=== PATIENT | male | born 1930 | race Caucasian/White ===

== ENCOUNTER 2016-10-15 00:41 | Inpatient (IN) | payer MEDICARE, OTHER ==
[~2016-10-15] VITALS: Ht 167.6 cm; Wt 54.0 kg
[2016-10-15] VITALS (14 sets, daily range): BP systolic 108–167; BP diastolic 54–74; PULSE 59–83; RESP 16–20; TEMP 97.7; Ht 167.6 cm; Wt 54.0 kg
[2016-10-15] MEDS ORDERED: ALBUTEROL 0.083% (NEB) 2.5 MG/3 ML AMP INH STA (01:05)
[2016-10-15] MEDS ORDERED: IPRATROPIUM (NEB) 0.5 MG/2.5 ML AMP INH STA (01:05)
--- NOTE | 2016-10-15 01:47 | RADRPT ---
PROCEDURE: XR Chest. CLINICAL INDICATION: Shortness of breath TECHNIQUE: Single frontal view of the chest was obtained COMPARISON: None FINDINGS: The heart is not enlarged. The patient is likely status post CABG. A single superior sternal wire seen. Appearance of narrowing of the transverse tracheal lumen in the thoracic inlet region of uncer tain etiology. Calcification in the aortic arch. There is minimal prominence of the lung interstitium likely minimal chronic changes. There is no pleural effusion or pneumothorax. ECG leads projected over the chest. IMPRESSION: Appearance of narrowing of the transverse tracheal lumen in the thoracic inlet region of uncertain e tiology. Please see above. RPTAT: HJES .Pratik Burns MD, MD Date Time Electronically viewed and signed by .Pratik Burns MD, MD on 10/15/2016 01:47 .S/
[2016-10-15 02:19] LABS: ADD SCAN DIFF NO
[2016-10-15 02:21] LABS: BASOPHILS % 0.3 % (0.0-2.0); EOSINOPHILS # 0.3 10^3/ul (0.0-0.5); EOSINOPHILS % 4.1 % (0.0-7.0); HEMATOCRIT 30.9 % (42.0-52.0); HEMOGLOBIN 10.2 g/dl (14.0-18.0); LYMPHOCYTES # 2.3 10^3/ul (0.8-2.9); MEAN CORPUSCULAR HEMOGLOBIN 32.1 pg (29.0-33.0); MEAN CORPUSCULAR VOLUME 97.2 fl (82.0-101.0); MEAN PLATELET VOLUME 11.6 fl (7.4-10.4); MONOCYTE # 0.7 10^3/ul (0.3-0.9); MONOCYTES % 10.3 % (0.0-11.0); NEUTROPHIL # 3.1 10^3/ul (1.6-7.5); NEUTROPHILS % 48.8 % (39.0-77.0); PLATELET COUNT 167 10^3/UL (140-415); RED BLOOD COUNT 3.18 10^6/ul (4.70-6.10); RED CELL DISTRIBUTION WIDTH 12.7 % (11.5-14.5); WHITE BLOOD COUNT 6.3 10^3/ul (4.8-10.8)
[2016-10-15 02:37] LABS: ALBUMIN 3.7 g/dl (3.3-4.9); CHLORIDE 103 mmol/L (97-110)
[2016-10-15 02:38] LABS: SODIUM 137 mmol/L (135-144)
[2016-10-15 02:40] LABS: ALANINE AMINOTRANSFERASE 23 IU/L (13-69); ALBUMIN/GLOBULIN RATIO 1.27; ALKALINE PHOSPHATASE 49 IU/L (42-121); ANION GAP 15 (8-16); ASPARTATE AMINO TRANSFERASE 19 IU/L (15-46); BILIRUBIN,INDIRECT 0.3 mg/dl (0-1.1); BILIRUBIN,TOTAL 0.3 mg/dl (0.2-1.3); BLOOD UREA NITROGEN 43 mg/dl (7-20); CARBON DIOXIDE 24 mmol/L (21-31); CREATININE 1.65 mg/dl (0.61-1.24); TOTAL PROTEIN 6.6 g/dl (6.1-8.1)
[2016-10-15 02:41] LABS: CALCIUM 9.5 mg/dl (8.4-10.2); GLUCOSE 169 mg/dl (70-220)
[2016-10-15 02:49] LABS: B-TYPE NATRIURETIC PEPTIDE 1820 PG/ML (0-450)
[2016-10-15 02:51] LABS: INR 1.11; PROTIME 14.3 Sec (12.2-14.2); PT RATIO 1.1
[2016-10-15 03:01] LABS: TROPONIN-I < 0.012 ng/ml (0.00-0.12)
--- NOTE | 2016-10-15 05:04 | ERA ---
ER Documentation Chief Complaint Date/Time DATE: 10/15/16 TIME: 05:03 Chief Complaint intermittent sob and cp x 1 week HPI This is a 86-year-old male complains of intermittent shortness of breath and chest pain for the past week. No fevers or chills. No nausea no vomiting. Patient says is worse when he lays back. He is also notes mild leg swelling. No other current complaints. ROS All systems reviewed and are negative except as per history of present illness. Allergies Allergies: Coded Allergies: No Known Allergy (Unverified , 10/15/16) PMhx/Soc Hx Alcohol Use: No Hx Substance Use: No Hx Tobacco Use: No Smoking Status: Never smoker Physical Exam Vitals Vital Signs Date Time Temp Pulse Resp B/P Pulse Ox O2 Delivery O2 Flow Rate FiO2 10/15/16 03:05 97.7 78 16 138/66 99 Room Air 10/15/16 01:30 77 18 99 21 10/15/16 01:05 97.7 64 17 147/61 100 Physical Exam Const: [] Head: Atraumatic Eyes: Normal Conjunctiva ENT: Normal External Ears, Nose and Mouth. Neck: Full range of motion..~ No meningismus. Resp: Clear to auscultation bilaterally Cardio: Regular rate and rhythm, no murmurs Abd: Soft, non tender, non distended. Normal bowel sounds Skin: No petechiae or rashes Back: No midline or flank tenderness Ext: No cyanosis, or edema Neur: Awake and alert Psych: Normal Mood and Affect Result Diagram: 10/15/16 0145 10/15/16 0145 Results 24 hrs Laboratory Tests Test 10/15/16 01:45 White Blood Count 6.310^3/ul Red Blood Count 3.1810^6/ul Hemoglobin 10.2g/dl Hematocrit 30.9% Mean Corpuscular Volume 97.2fl Mean Corpuscular Hemoglobin 32.1pg Mean Corpuscular Hemoglobin Concent 33.0g/dl Red Cell Distribution Width 12.7% Platelet Count 82384^3/UL Mean Platelet Volume 11.6fl Neutrophils % 48.8% Lymphocytes % 36.0% Monocytes % 10.3% Eosinophils % 4.1% Basophils % 0.3% Nucleated Red Blood Cells % 0.0/100WBC Neutrophils # 3.110^3/ul Lymphocytes # 2.310^3/ul Monocytes # 0.710^3/ul Eosinophils # 0.310^3/ul Basophils # 0.010^3/ul Nucleated Red Blood Cells # 0.010^3/ul Prothrombin Time 14.3Sec Prothrombin Time Ratio 1.1 INR International Normalized Ratio 1.11 Activated Partial Thromboplast Time 32.0Sec Sodium Level 137mmol/L Potassium Level 5.0mmol/L Chloride Level 103mmol/L Carbon Dioxide Level 24mmol/L Anion Gap 15 Blood Urea Nitrogen 43mg/dl Creatinine 1.65mg/dl Glucose Level 169mg/dl Calcium Level 9.5mg/dl Total Bilirubin 0.3mg/dl Direct Bilirubin 0.00mg/dl Indirect Bilirubin 0.3mg/dl Aspartate Amino Transf (AST/SGOT) 19IU/L Alanine Aminotransferase (ALT/SGPT) 23IU/L Alkaline Phosphatase 49IU/L Troponin I < 0.012ng/ml B-Type Natriuretic Peptide 1820PG/ML Total Protein 6.6g/dl Albumin 3.7g/dl Globulin 2.90g/dl Albumin/Globulin Ratio 1.27 Current Medications Medications (Trade) Dose Ordered Sig/Aj Route PRN Reason Start Time Stop Time Status Last Admin Dose Admin Albuterol (Proventil 0.083% (Neb)) 5 mg ONCE STAT INH 10/15/16 01:05 10/15/16 01:30 DC 10/15/16 01:34 Ipratropium [place] (Atrovent 0.02% (Neb)) 0.5 mg ONCE STAT INH 10/15/16 01:05 10/15/16 01:30 DC 10/15/16 01:34 Procedures/MDM EKG: Rate/Rhythm: Normal Sinus Rhythm QRS, ST, T-waves: No changes consistent w/ acute ischemia Impression: No evidence of ischemia or arrhythmia Chest X-ray 1V Interpreted by me: Soft Tissue: No acute abnormalities Bones: No acute abnormalities Mediastinum/Cardiac Silhouette/Lungs: No acute abnormalities Patient's heart failure symptoms is concerning for acute decompensation and will require inpatient workup and monitoring. Further w/u for ischemia, arrhythmia, PE or dissection will be deferred to the inpatient team. Accepting Care Team: Current data and ongoing care discussed. Time: 5 AM Primary Provider: Hospitalist Consulting: [XOXOXO] Outstanding Data: none Departure Diagnosis: Primary Impression: CHF (congestive heart failure) Qualified Code: I50.9 - Congestive heart failure, unspecified congestive heart failure chronicity, unspecified congestive heart failure type Condition: Serious MARY RAMIREZ Oct 15, 2016 05:04
[2016-10-15] MEDS ORDERED: NPH,100I5 SQ (05:29)
[2016-10-15] MEDS ORDERED: METO5TAB58 PO ×2 (06:49→06:59)
[2016-10-15] MEDS ORDERED: ASPI325T4 PO (06:49)
[2016-10-15] MEDS ORDERED: ALLO100T PO (06:59)
[2016-10-15] MEDS ORDERED: OLME40TA14 PO (06:59)
[2016-10-15] MEDS ORDERED: ATOR40TA68 PO (06:59)
[2016-10-15] MEDS ORDERED: ISOS20TA19 PO (06:59)
[2016-10-15] MEDS ORDERED: TAMS0.4C2 PO (06:59)
[2016-10-15] MEDS ORDERED: DEXL60CA2 PO (06:59)
[2016-10-15] MEDS ORDERED: ONDANSETRON 4 MG INJ IV PRN (08:30)
[2016-10-15] MEDS ORDERED: morphine 2 MG INJ IV PRN (08:30)
[2016-10-15] MEDS ORDERED: NITROGLYCERIN (SL) 0.4 MG TAB SL PRN (08:30)
[2016-10-15] MEDS ORDERED: ACETAMINOPHEN 325 MG TAB PO PRN (08:30)
[2016-10-15] MEDS ORDERED: ALBUTEROL/IPRATROPIUM (NEB) 3 ML AMP HHN PRN (08:30)
[2016-10-15] MEDS ORDERED: NACL 0.9% 3 ML SYG IV SCH (08:30)
--- NOTE | 2016-10-15 08:58 | HP ---
DATE OF ADMISSION: 10/15/2016 TIME SEEN: 5:30 a.m. CHIEF COMPLAINT: Shortness of breath. HISTORY OF PRESENT ILLNESS: The patient is an 86-year-old male with a history of diabetes, hypertens ion and cardiac surgery, likely to coronary artery bypass graft, who presented to the emergency depa rtment with a chief complaint of shortness of breath. The patient's symptoms started about a week a go and have been progressively getting worse. He has been waking up from his sleep gasping for air. He also reported intermittent chest pain for the past 1 week. Denied nausea, vomiting, fever, chi lls, abdominal pain, or urinary symptoms. When he presented to the ER, blood pressure was 147/61, heart rate 64, respiration rate 17, temperat ure 97.7, oxygen saturation 100% on room air. Laboratory value shows a BUN of 43, creatinine 1.65. BNP 1800 and a hemoglobin of 10.2. Otherwise, CBC and CMP are within acceptable range. His first troponin is negative. Chest x-ray shows appearance of narrowing of the transverse tracheal lumen in the thoracic inlet reg ion, of uncertain etiology. The initial EKG showed normal sinus rhythm with no ST-T wave abnormalit ies. IMPRESSION: 1. Shortness of breath, most likely secondary to congestive heart failure exacerbation. 2. Chest pain. 3. History of hypertension. 4. History of diabetes. 5. Presumed acute kidney injury. 6. Normocytic anemia. 7. History of cardiac surgery, possibly coronary artery bypass graft. PLAN: We will admit to telemetry unit. He will be placed on aspirin, Lasix. His heart rate sometim es is down in the 60s, but ____ we will consider adding a beta rosario. He will receive as needed n itroglycerin and morphine. He will be placed on oxygen. We will obtain a 2D echo as well as a card iology consult. Will send iron profile to see if he has iron deficiency anemia. Further workup and management per clinical course. Dictated By: MARY YANG/VELVET Conf#: [id number] DID#: [id number]
[2016-10-15] MEDS ORDERED: LOSARTAN 50 MG TAB PO SCH (09:00)
[2016-10-15] MEDS ORDERED: ASPIRIN 325 MG TAB PO SCH (09:00)
[2016-10-15] MEDS ORDERED: NON-FORMULARY/PATIENT OWN MED (Olmesartan Medoxomil (Benicar) 40 MG) PO SCH (09:00)
[2016-10-15] MEDS ORDERED: ISOSORBIDE DINITRATE 20 MG TAB PO SCH (09:00)
[2016-10-15 09:17] LABS: TROPONIN-I 0.013 ng/ml (0.00-0.12)
[2016-10-15 09:19] LABS: CK-MB 1.44 ng/ml (0.0-2.4)
[2016-10-15] MEDS: HEPARIN 5,000 UNIT/0.5 ML VIAL SC SCH ×2 (10:07→20:26)
[2016-10-15] MEDS: TAMSULOSIN (SR) 0.4 MG CAP PO SCH (10:24)
[2016-10-15] MEDS: ISOSORBIDE MONONITRATE(SR)30 MG TAB PO SCH (10:26)
[2016-10-15] MEDS: METOPROLOL 25 MG TAB PO SCH ×2 (10:29→20:25)
[2016-10-15] MEDS: ALLOPURINOL 100 MG TAB PO SCH (10:30)
[2016-10-15] MEDS: ASPIRIN 81 MG TAB PO SCH (10:30)
[2016-10-15] MEDS: PANTOPRAZOLE (EC) 40 MG TAB PO SCH (11:00)
[2016-10-15] MEDS ORDERED: INSULIN ASPART [NOVOLOG] 3 ML PEN SC SCH (11:50)
[2016-10-15] MEDS ORDERED: DEXTROSE 50% 50 ML SYRINGE IV PRN ×2 (12:00)
[2016-10-15] MEDS ORDERED: GLUCOSE GEL 15 GRAM TUBE BUCCAL PRN (12:00)
[2016-10-15] MEDS ORDERED: GLUCAGON 1 MG INJ IM PRN (12:00)
[2016-10-15] MEDS ORDERED: GLUCOSE GEL 15 GRAM TUBE PO PRN ×2 (12:00)
[2016-10-15] MEDS: INSULIN ASPART [NOVOLOG] 3 ML PEN SC SCH ×3 (12:18→20:27)
[2016-10-15] MEDS ORDERED: hydrALAzine 20 MG INJ IV PRN (13:30)
[2016-10-15 15:33] LABS: CREATINE KINASE 40 IU/L (23-200)
--- NOTE | 2016-10-15 15:56 | RADRPT ---
Echocardiogram Report Patient Name: MARIANA ANDERSON Gender: Male Date: 1930 Study Date: 15-Oct-2016 Rn Case Manager: [facility] Location: 522 Ref. Physician: MARY GIBBS Quality: Adequate Procedures: Transthoracic echocardiogram with complete 2D, M-Mode, and doppler examination. Indications: WEAKNESS. 2D/M Mode Doppler Measurement Value Normal Ranges Measurement Value Normal Ranges LVIDd 2D 4.6 3.5 - 5.6 cm VANESSA Vmax 1.1 cm2 LVIDs 2D 3.3 2.1 - 4.1 cm VANSESA VTI 1.1 cm2 LVPWd 2D 1.2 0.6 - 1.1 cm AV Mean Jamison 2.1 m/sec IVSd 2D 1.4 0.6 - 1.1 cm AV Mean PG 19.9 mmHg AoR Diam 2D 2.9 2.0 - 3.7 cm AV Peak [place]ison 2.9 m/sec EDV 2D 98.1 cm3 AV Peak PG 33.0 mmHg ESV 2D 36.2 cm3 AV VTI 78.3 cm LVOT Diam 2.1 cm LVOT Mean [place] 0.5 m/sec LVOT Mean PG 1.3 mmHg LVOT Peak [place] 0.9 m/sec LVOT Peak PG 3.4 mmHg LVOT VTI 26.2 cm MV E Peak [place] 1.3 m/sec MV A Peak [place] 1.3 m/sec MV E/A 1.0 MV Decel Time 165 msec MV Decel [place] 8 MV E/A 1.0 TR Peak [place] 2.5 m/sec TR Peak PG 24.9 mmHg Findings Left Ventricle: Normal left ventricular cavity size. Mild concentric left ventricular hypertrophy. Ejection fraction is visually estimated at 55 %. Abnormal Diastolic Function. These segments of the LV are hypokinetic apical septum. Right Ventricle: Mild right ventricular systolic dysfunction. Mild enlargement of right ventricle. Left Atrium: Upper limit of normal left atrial size. Right Atrium: There is mild enlargement of right atrium. RA Pressure=3. Mitral Valve: Mitral valve leaflets appear mildly thickened. Mild mitral annular calcification. Mild mitral valve regurgitation. Aortic Valve: Moderate aortic stenosis. Aortic valve Max velocity 2.87 m/sec. Max PG 33.00 mmHg. Mean PG 19.90 mmHg. Aortic valve area 1.10 cm2. Aortic cusps appear severely calcified. Trace to mild aortic valve regurgitation. Tricuspid Valve: Estimated peak PA systolic pressure 28 mmHg. There is mild tricuspid regurgitation. Pericardium: Normal pericardium with no significant pericardial effusion. Aorta: Normal aortic root. IVC: Normal size and normal respiratory collapse consistent with normal right atrial pressure. Conclusions 1.Normal left ventricular cavity size. Mild concentric left ventricular hypertrophy. Ejection fraction is visually estimated at 55 %. Abnormal Diastolic Function. These segments of the LV are hypokinetic apical septum. 2.Upper limit of normal left atrial size. 3.Mitral valve leaflets appear mildly thickened. Mild mitral annular calcification. Mild mitral valve regurgitation. 4.Moderate aortic stenosis. Aortic valve Max velocity 2.87 m/sec. Max PG 33.00 mmHg. Mean PG 19.90 mmHg. Aortic valve area 1.10 cm2. Aortic cusps appear severely calcified. Trace to mild aortic valve regurgitation. 5.Estimated peak PA systolic pressure 28 mmHg. There is mild tricuspid regurgitation. Electronically Signed By: Heber Meeks 15-Oct-2016 15:55:36 -0700 Patient Name: MARIANA ANDERSON Study Date: 15-Oct-2016 [id number]
[2016-10-15 16:05] LABS: CK-MB 1.43 ng/ml (0.0-2.4); TROPONIN-I < 0.012 ng/ml (0.00-0.12)
--- NOTE | 2016-10-15 18:19 | CONS ---
DATE OF ADMISSION: 10/15/2016 DATE OF CONSULTATION: 10/15/2016 REFERRING PHYSICIAN: Dr. Reveles REASON FOR CONSULTATION: Coronary artery disease, chest pain, possible CHF. CHIEF COMPLAINT: Shortness of breath, chest pain. HISTORY OF PRESENT ILLNESS: Thank you for this referral. History obtained from the patient, review of the old chart. The patient is a fair historian at best. An 86-year-old gentleman with history of coronary artery disease, status post ____ bypass surgery done many years ago, probably in 1984 or 2004. The patient is not sure. He came to emergency room with above complaint. The patient said over the past week he has had shortness of breath intermittently, it comes and goes, ____. He repor jailene his omeprazole was discontinued and since then he has had the symptoms. It was felt that he is a patient of congestive heart failure. Diuresis was given. Currently, breathing is much better. PAST MEDICAL HISTORY: History of coronary artery disease, status post 2-vessel bypass surgery many years ago in [place]. It is unclear how many years ago it was exactly. History of hypertension, histo ry of aortic stenosis, probably moderate; history of PCI prior to his bypass surgery. SOCIAL HISTORY: The patient has quit smoking many years ago. PAST SURGICAL HISTORY: Had probably 2 vessel bypass surgery many years ago complicated by sternal w ound infections and removal of most of the sutures. ALLERGIES: NO REPORTED ALLERGIES. MEDICATIONS: 1. Tamsulosin. 2. Lipitor 40. 3. Imdur 40. 4. Benicar 40. 5. Aspirin. 6. Dexilant. 7. ____. 8. Allopurinol. FAMILY HISTORY: Mother with DE, age 80. REVIEW OF SYSTEMS: As above mentioned plus also for poor hearing as well as hip pain when he walks, which limits his walking mostly. PHYSICAL EXAMINATION: VITAL SIGNS: Temperature 98.6, heart rate of 58, blood pressure 131/58, respiration of 20, saturati ng 99%. HEENT: Normocephalic, atraumatic. Pupils are equal. CARDIOVASCULAR: Regular rate and rhythm. Systolic ejection murmur radiating to carotids. PULMONARY: No wheezes, no rhonchi. NECK: With no JVD. CHEST: Status post sternotomy with a sternal wound, does not appear to be well healed. GASTROINTESTINAL: Soft, nontender. EXTREMITIES: No edema. NEUROLOGIC: Awake and alert ____. PSYCHIATRIC: Appeared to be calm and pleasant. DIAGNOSTIC DATA: Showed normal sinus rhythm. Nonspecific ST abnormalities. Echocardiogram was per sonally reviewed, which showed normal LV size and ejection fraction of about 55% with apical septal wall hypokinesis. Mean gradient of aortic valve was 20 and peak of 33. Aortic valve area was calcu lated at 1.1 cm2 consistent with moderate aortic stenosis. PA pressure is normal at 29 mmHg. Mild TR noted. Chest x-ray was personally reviewed. No evidence of fluid overload noted on personal rev iew. LABORATORY DATA: Showed sodium 137, potassium 5, BUN of 43, creatinine 1.65, glucose 169. Troponin negative x3. ProBNP of 1820. WBC of 6.3, hemoglobin 10.2, platelets of 167. ASSESSMENT AND PLAN: 1. Dyspnea, etiology unclear. Rule out ischemia. 2. Coronary artery disease with history of coronary bypass graft. 3. History of aortic stenosis, moderate. 4. Hypertension. 5. Diabetes. 6. Dyslipidemia. 7. Renal insufficiency. 8. Anemia. 9. History of gastroesophageal reflux disease. 10. History of benign prostatic hypertrophy. RECOMMENDATIONS: I will hold the ARB for now. Will monitor renal function. The patient received a dose of Lasix. We will hold off any further Lasix for now. The patient does not appear to be flui d overloaded. Statin will be continued. Nitrates will be continued. Follow the renal function. L exiscan test will be obtained tomorrow to rule out significant obstructive coronary artery disease. Thank you for this referral. Dictated By: OMAR LOMELI MD AV/NTS Conf#: [id number] DID#: [id number] CC: MARY GIBBS MD; ESTHELA REVELES MD;*End*
[2016-10-15] MEDS: ATORVASTATIN 40 MG TAB PO SCH (20:24)
[2016-10-15] MEDS: NPH, HUMAN INSULIN ISOPHANE 3ML VIAL SC SCH (20:27)
[2016-10-16] VITALS (10 sets, daily range): BP systolic 90–157; BP diastolic 49–65; PULSE 57–72; RESP 18–19
[2016-10-16] MEDS: ACCU-CHEK XX SCH ×2 (02:00)
[2016-10-16] MEDS ORDERED: ACCU-CHEK XX SCH (02:00)
[2016-10-16] MEDS: PANTOPRAZOLE (EC) 40 MG TAB PO SCH (05:39)
[2016-10-16] MEDS: INSULIN ASPART [NOVOLOG] 3 ML PEN SC SCH ×4 (07:49→21:00)
[2016-10-16 07:52] LABS: ADD SCAN DIFF NO
[2016-10-16 07:59] LABS: BASOPHILS % 0.3 % (0.0-2.0); EOSINOPHILS # 0.3 10^3/ul (0.0-0.5); EOSINOPHILS % 3.5 % (0.0-7.0); HEMATOCRIT 32.2 % (42.0-52.0); HEMOGLOBIN 10.3 g/dl (14.0-18.0); LYMPHOCYTES # 1.5 10^3/ul (0.8-2.9); LYMPHOCYTES % 18.9 % (15.0-51.0); MEAN CORPUSCULAR HEMOGLOBIN 31.4 pg (29.0-33.0); MEAN CORPUSCULAR VOLUME 98.2 fl (82.0-101.0); MEAN PLATELET VOLUME 11.6 fl (7.4-10.4); MONOCYTE # 0.8 10^3/ul (0.3-0.9); MONOCYTES % 10.9 % (0.0-11.0); NEUTROPHIL # 5.1 10^3/ul (1.6-7.5); NEUTROPHILS % 66.1 % (39.0-77.0); PLATELET COUNT 157 10^3/UL (140-415); RED BLOOD COUNT 3.28 10^6/ul (4.70-6.10); WHITE BLOOD COUNT 7.7 10^3/ul (4.8-10.8)
[2016-10-16] MEDS: ASPIRIN 81 MG TAB PO SCH (08:13)
[2016-10-16] MEDS: METOPROLOL 25 MG TAB PO SCH ×2 (08:14→21:30)
[2016-10-16] MEDS: TAMSULOSIN (SR) 0.4 MG CAP PO SCH (08:14)
[2016-10-16] MEDS: ISOSORBIDE MONONITRATE(SR)30 MG TAB PO SCH (08:14)
[2016-10-16] MEDS: ALLOPURINOL 100 MG TAB PO SCH (08:14)
[2016-10-16 08:19] LABS: PHOSPHORUS 4.3 mg/dl (2.5-4.9)
[2016-10-16 08:24] LABS: ALBUMIN 3.4 g/dl (3.3-4.9); ALBUMIN/GLOBULIN RATIO 1.21; BILIRUBIN,INDIRECT 0.4 mg/dl (0-1.1); BILIRUBIN,TOTAL 0.4 mg/dl (0.2-1.3); CALCIUM 9.4 mg/dl (8.4-10.2); CHOL/HDL RATIO 2.4 RATIO; CREATININE 1.41 mg/dl (0.61-1.24); MAGNESIUM 1.6 mg/dl (1.7-2.5); POTASSIUM 4.7 mmol/L (3.5-5.1); TOTAL PROTEIN 6.2 g/dl (6.1-8.1)
[2016-10-16 08:48] LABS: THYROID STIMULATING HORMONE 2.27 MIU/L (0.465-4.680)
[2016-10-16 09:07] LABS: CREATINE KINASE 46 IU/L (23-200)
[2016-10-16 09:09] LABS: IRON 98 ug/dl (35-150)
[2016-10-16 09:18] LABS: TOTAL IRON BINDING CAPACITY 265 ug/dl (241-421)
[2016-10-16 09:25] LABS: CK-MB 1.21 ng/ml (0.0-2.4); TROPONIN-I < 0.012 ng/ml (0.00-0.12)
[2016-10-16] MEDS ORDERED: DEXTROSE 5%-0.45% NACL 1,000 ML IV SCH (09:30)
[2016-10-16] MEDS ORDERED: REGADENOSON 0.4 MG/5 ML SYG ONE (11:39)
--- NOTE | 2016-10-16 12:35 | PN ---
DATE: 10/16/2016 CARDIOLOGY FOLLOWUP SUBJECTIVE: Discussed with the staff. The patient with no chest pain or pressure. Breathing has s ignificantly improved. MEDICATIONS: Reviewed. PHYSICAL EXAMINATION: VITAL SIGNS: Temperature 98.7, heart rate 72, blood pressure 90/49, respirations 18, saturating 100 %. HEENT: Normocephalic, atraumatic. Pupils are equal. CARDIOVASCULAR: Regular rate and rhythm. PULMONARY: With mild rhonchi and wheezes. GASTROINTESTINAL: Soft, nontender. EXTREMITIES: No significant edema. NEUROLOGIC: Awake and alert. CHEST: Status post previous sternotomy with chest previously appeared to have been left open, skin closure but the bones were not closed. NEUROLOGIC: Awake and alert. PSYCHIATRIC: Calm, pleasant. LABORATORY: Sodium 137, potassium 4.7, BUN of 41, creatinine 1.41, glucose 114, magnesium is 1.6. LDL 68, HDL 54. TSH 2.27. ASSESSMENT AND PLAN: 1. Dyspnea, possibly secondary to pulmonary disease and chronic obstructive pulmonary disease. 2. Coronary artery disease, rule acute coronary syndrome, status post coronary bypass graft. 3. Aortic stenosis, moderate. 4. Hypertension. 5. Diabetes 6. Dyslipidemia. 7. Renal insufficiency, improved today. 8. History of benign prostatic hypertrophy. RECOMMENDATIONS: Lexiscan test will be done today. Pulmonary treatment as per internal medicine. Continue the rest of his cardiac care. Dictated By: OMAR LOMELI MD AV/VELVET Conf#: [id number] DID#: [id number] CC: MARY GIBBS MD;*EndCC*
--- NOTE | 2016-10-16 12:47 | TMLRPT ---
DATE: 10/16/2016 LEXISCAN STRESS TEST INDICATION: Chest pain, dyspnea, coronary artery disease. DESCRIPTION: Lexiscan was performed as per protocol. FINDINGS: 1. Baseline EKG showed normal sinus rhythm with ischemia. Heart rate at baseline is 68. Blood pre ssure 155/68. 2. Heart rate at peak stress is 71, blood pressure 141/66. 3. No significant ischemic changes seen. 4. No significant arrhythmias seen. CONCLUSION: Completion of Lexiscan stress test as per protocol. See nuclear medicine result for fi nal report. Dictated By: OMAR LOMELI MD AV/VELVET Conf#: [id number] DID#: [id number]
[2016-10-16] MEDS: HEPARIN 5,000 UNIT/0.5 ML VIAL SC SCH ×2 (13:38→20:32)
[2016-10-16] MEDS: LEVALBUTEROL (NEB) 0.31 MG/3 ML AMP HHN SCH ×3 (13:50→21:55)
--- NOTE | 2016-10-16 14:13 | RADRPT ---
PROCEDURE: Lexiscan myocardial perfusion study CLINICAL INDICATION: 86 -year-old patient complaining of chest pain. TECHNIQUE: Lexiscan 0.4 mg intravenously separate acquisition gated myocardial perfusion SPECT usi ng Tc 99m Myoview 30.0 mCi intravenously at stress and Tc-99m Myoview, 9.6 mCi intravenously at rest was performed using the rest/stress sequence. Poststress Myoview SPECT images were obtained in the supine position. COMPARISON: No prior studies. FINDINGS: Perfusion images reveal mild nonreversible perfusion abnormality in the inferolateral wall. Lexiscan post stress gated SPECT images demonstrate no wall motion abnormalities. IMPRESSION: 1. No evidence of stress-induced ischemia. 2. No wall motion abnormalities. 3. The left ventricle ejection fraction at stress is 56%. A call report was made to Dr. Meeks at 02:12 p.m. on October 16, 2016 RPTAT: HH .Samantha Power MD, MD Date Time Electronically viewed and signed by .Samantha Power MD, on 10/16/2016 14:13 .L/
--- NOTE | 2016-10-16 14:45 | PN ---
Date/Time of Note Date/Time of Note DATE: 10/16/16 TIME: 14:37 Assessment/Plan VTE Prophylaxis VTE Prophylaxis Intervention: heparin Lines/Catheters Urinary Cath still in place: No Assessment/Plan Assessment/Plan IMPRESSION: 1. Shortness of breath, most likely secondary to congestive heart failure exacerbation. 2. Chest pain. 3. History of hypertension. 4. History of diabetes. 5. Presumed acute kidney injury: improving 6. Normocytic anemia. 7. History CAD with coronary artery bypass graft. 8. Moderate Aortic stenosis PLAN: - pt had a Lexiscan nuclear stress test today, which is negative for ischemia. - will continue his current cardiac meds. cardiology following. - continue to avoid nephrotoxins and monitor kidney function closely. will check cr in the morning Subjective 24 Hr Interval Summary Free Text/Dictation no acute events over night. Exam/Review of Systems Vital Signs Vitals Vital Signs Date Time Temp Pulse Resp B/P Pulse Ox O2 Delivery O2 Flow Rate FiO2 10/16/16 13:51 64 98 21 10/16/16 11:36 98.7 18 90/49 10/15/16 05:00 Room Air Intake and Output 10/15/16 10/15/16 10/16/16 15:00 23:00 07:00 Intake Total 1000 ml 120 ml Balance 1000 ml 120 ml Exam Constitutional: alert, oriented, other (no acute distress) Head: atraumatic, normocephalic Eyes: EOMI, PERRL Respiratory: clear to auscultation, normal air movement Cardiovascular: regular rate and rhythm, systolic murmur Gastrointestinal: non-tender, soft Extremities: normal pulses Results Result Diagram: 10/16/16 0704 10/16/16 0704 Results 24 hrs Laboratory Tests Test 10/15/16 14:45 10/15/16 17:07 10/15/16 20:19 10/16/16 06:36 Creatine Kinase 40 Creatine Kinase Index 3.6 Creatinine Kinase MB (Mass) 1.43 Troponin I < 0.012 Bedside Glucose 79 155 52 L Test 10/16/16 06:55 10/16/16 07:04 10/16/16 07:10 10/16/16 07:40 Bedside Glucose 137 102 White Blood Count 7.7 # Red Blood Count 3.28 L Hemoglobin 10.3 L Hematocrit 32.2 L Mean Corpuscular Volume 98.2 Mean Corpuscular Hemoglobin 31.4 Mean Corpuscular Hemoglobin Concent 32.0 Red Cell Distribution Width 13.0 Platelet Count 157 Mean Platelet Volume 11.6 H Neutrophils % 66.1 Lymphocytes % 18.9 Monocytes % 10.9 Eosinophils % 3.5 Basophils % 0.3 Nucleated Red Blood Cells % 0.0 Neutrophils # 5.1 Lymphocytes # 1.5 Monocytes # 0.8 Eosinophils # 0.3 Basophils # 0.0 Nucleated Red Blood Cells # 0.0 Sodium Level 137 Potassium Level 4.7 Chloride Level 108 Carbon Dioxide Level 25 Anion Gap 9 # Blood Urea Nitrogen 41 H Creatinine 1.41 H Glucose Level 114 # Calcium Level 9.4 Phosphorus Level 4.3 Magnesium Level 1.6 L Iron Level 98 Total Iron Binding Capacity 265 Percent Iron Saturation 37 Ferritin 143.0 Total Bilirubin 0.4 Direct Bilirubin 0.00 Indirect Bilirubin 0.4 Aspartate Amino Transf (AST/SGOT) 22 Alanine Aminotransferase (ALT/SGPT) 24 Alkaline Phosphatase 52 Creatine Kinase 46 Creatine Kinase Index 2.6 Creatinine Kinase MB (Mass) 1.21 Troponin I < 0.012 B-Type Natriuretic Peptide 2650 H Total Protein 6.2 Albumin 3.4 Globulin 2.80 Albumin/Globulin Ratio 1.21 Triglycerides Level 43 Cholesterol Level 131 LDL Cholesterol, Calculated 68 HDL Cholesterol 54 Cholesterol/HDL Ratio 2.4 Thyroid Stimulating Hormone (TSH) 2.270 Hemoglobin A1c 8.6 H Test 10/16/16 07:43 10/16/16 13:10 10/16/16 13:35 Bedside Glucose 91 76 158 Medications Medications Current Medications Ondansetron HCl (Zofran Inj) 4 mg Q6H PRN IV NAUSEA AND/OR VOMITING; Start at 08:30 Nitroglycerin (Nitroglycerin (Sl Tab) 0.4 Mg) 1 tab Q5M PRN SL CHEST PAIN; Start 10/15/16 at 08:30 Acetaminophen (Tylenol Tab) 650 mg Q6H PRN PO PAIN LEVEL 1-3 OR FEVER; Start at 08:30 Morphine Sulfate (morphine) 2 mg Q4H PRN IV PAIN LEVEL 7-10; Start 10/15/16 at 08:30 Heparin Sodium (Porcine) (Heparin (5000 Units/0.5 ml)) 5,000 unit Q12 SC Last administered on 10/16/16t 13:38; Admin Dose 5,000 UNIT; Start 10/15/16 at 09:00 Allopurinol (Zyloprim) 100 mg DAILY PO Last administered on 10/15/16 10:30; Admin Dose 100 MG; Start 10/15/16 at 09:00 Atorvastatin Calcium (Lipitor) 40 mg QHS PO Last administered on 10/15/16 20: 24; Admin Dose 40 MG; Start 10/15/16 at 21:00 Tamsulosin HCl (Flomax) 0.4 mg DAILY PO Last administered on 10/15/16 10:24; Admin Dose 0.4 MG; Start 10/15/16 at 09:00 Pantoprazole (Protonix Tab) 40 mg DAILY@06 PO Last administered on 10/16/16 05 :39; Admin Dose 40 MG; Start 10/15/16 at 09:00 Metoprolol Tartrate (Lopressor) 12.5 mg BID PO Last administered on 10/15/16 20:25; Admin Dose 12.5 MG; Start 10/15/16 at 09:00 Isosorbide Mononitrate (Imdur) 30 mg DAILY PO Last administered on 10/15/16 10 :26; Admin Dose 30 MG; Start 10/15/16 at 09:00 Losartan Potassium (Cozaar) 100 mg DAILY PO Last administered on 10/15/16 10: 22; Admin Dose 100 MG; Start 10/15/16 at 09:00; Status Future Hold Aspirin (Aspirin) 81 mg DAILY PO Last administered on 10/15/16 10:30; Admin Dose 81 MG; Start 10/15/16 at 10:00 Diagnostic Test (Pha) (Accu-Chek) 1 ea 02 XX ; Start 10/16/16 at 02:00 Insulin Human NPH (Humulin N) 10 unit DAILY@20 SC Last administered on 20:27; Admin Dose 10 UNIT; Start 10/15/16 at 20:00 Miscellaneous Information 1 ea NOTE XX ; Start 10/15/16 at 12:00 Glucose (Glutose) 15 gm Q15M PRN PO DECREASED GLUCOSE; Start 10/15/16 at 12:00 Glucose (Glutose) 22.5 gm Q15M PRN PO DECREASED GLUCOSE; Start 10/15/16 at 12: 00 Dextrose (D50w Syringe) 25 ml Q15M PRN IV DECREASED GLUCOSE Last administered on 10/16/16 06:40; Admin Dose 25 ML; Start 10/15/16 at 12:00 Dextrose (D50w Syringe) 50 ml Q15M PRN IV DECREASED GLUCOSE; Start 10/15/16 at 12:00 Glucagon (Glucagen) 1 mg Q15M PRN IM DECREASED GLUCOSE; Start 10/15/16 at 12:00 Glucose (Glutose) 15 gm Q15M PRN BUCCAL DECREASED GLUCOSE; Start 10/15/16 at 12 :00 Diagnostic Test (Pha) (Accu-Chek) 1 ea 02 XX ; Start 10/16/16 at 02:00 Hydralazine HCl 10 mg 10 mg Q6H PRN IV SBP>160; Start 10/15/16 at 13:30 Dextrose/Sodium Chloride (D5-1/2ns) 1,000 ml @ 70 mls/hr [id number] IV Last administered on 10/16/16 13:00; Admin Dose 70 MLS/HR; Start 10/16/16 at 09:30 MARY GIBBS MD Oct 16, 2016 14:45
[2016-10-16] MEDS: NPH, HUMAN INSULIN ISOPHANE 3ML VIAL SC SCH (20:34)
[2016-10-16] MEDS: ATORVASTATIN 40 MG TAB PO SCH (21:29)
[2016-10-17] VITALS (9 sets, daily range): BP systolic 114–149; BP diastolic 56–80; PULSE 55–64; RESP 17–20
[2016-10-17] MEDS: LEVALBUTEROL (NEB) 0.31 MG/3 ML AMP HHN SCH ×5 (01:38→16:38)
[2016-10-17] MEDS: ACCU-CHEK XX SCH ×2 (02:00→02:04)
[2016-10-17] MEDS: PANTOPRAZOLE (EC) 40 MG TAB PO SCH (05:14)
[2016-10-17 06:32] LABS: ADD SCAN DIFF NO
[2016-10-17 06:45] LABS: BASOPHILS % 0.3 % (0.0-2.0); EOSINOPHILS # 0.3 10^3/ul (0.0-0.5); HEMATOCRIT 31.4 % (42.0-52.0); HEMOGLOBIN 10.3 g/dl (14.0-18.0); LYMPHOCYTES # 1.9 10^3/ul (0.8-2.9); LYMPHOCYTES % 25.4 % (15.0-51.0); MEAN CORPUSCULAR HEMOGLOBIN 31.7 pg (29.0-33.0); MEAN CORPUSCULAR HGB CONC 32.8 g/dl (32.0-37.0); MEAN CORPUSCULAR VOLUME 96.6 fl (82.0-101.0); MEAN PLATELET VOLUME 11.8 fl (7.4-10.4); MONOCYTE # 0.9 10^3/ul (0.3-0.9); MONOCYTES % 12.5 % (0.0-11.0); NEUTROPHIL # 4.3 10^3/ul (1.6-7.5); NEUTROPHILS % 57.5 % (39.0-77.0); PLATELET COUNT 163 10^3/UL (140-415); RED BLOOD COUNT 3.25 10^6/ul (4.70-6.10); RED CELL DISTRIBUTION WIDTH 12.6 % (11.5-14.5); WHITE BLOOD COUNT 7.5 10^3/ul (4.8-10.8)
[2016-10-17 06:54] LABS: ALBUMIN 3.4 g/dl (3.3-4.9); ALBUMIN/GLOBULIN RATIO 1.25; BILIRUBIN,INDIRECT 0.3 mg/dl (0-1.1); BILIRUBIN,TOTAL 0.3 mg/dl (0.2-1.3); CALCIUM 9.4 mg/dl (8.4-10.2); CREATININE 1.45 mg/dl (0.61-1.24); POTASSIUM 4.9 mmol/L (3.5-5.1); TOTAL PROTEIN 6.1 g/dl (6.1-8.1)
[2016-10-17] MEDS: INSULIN ASPART [NOVOLOG] 3 ML PEN SC SCH ×3 (07:55→17:12)
--- NOTE | 2016-10-17 09:06 | PN ---
DATE: 10/17/2016 CARDIOLOGY FOLLOWUP PROGRESS NOTE SUBJECTIVE: Discussed with the staff. Rhythm strip was reviewed. The patient remains in sinus rhy thm. No chest pain or pressure. He has some shortness of breath and occasional wheezes. No palpit ation. MEDICATIONS: Reviewed. PHYSICAL EXAMINATION: VITAL SIGNS: Temperature 99, heart rate of 64, blood pressure 140/68, respiratory rate of 18, satur ating 97%. HEENT: Normocephalic, atraumatic. Pupils are equal. NECK: Status post surgery. CARDIOVASCULAR: Regular rate and rhythm, systolic ejection murmur. PULMONARY: With minimal wheezes noted. GASTROINTESTINAL: Soft, nontender. EXTREMITIES: No edema. NEUROLOGIC: Awake and alert. PSYCHIATRIC: Calm and pleasant. LABORATORY: Sodium 135, potassium 4.9, BUN of 42, creatinine 1.45, glucose of 86. ASSESSMENT AND PLAN: 1. Dyspnea, multifactorial. It is partially related to chronic obstructive pulmonary disease, asth ma. 2. Coronary artery disease, status post coronary bypass graft. 3. Aortic valve stenosis, moderate to severe. Currently stable. Monitor. 4. Chest pain and dyspnea with no evidence of ischemia on the Lexiscan stress test. 5. Diabetes. 6. Dyslipidemia. 7. Chronic kidney disease. RECOMMENDATIONS: I have changed her to low dose carvedilol. Pulmonary care and nebulizer treatment as per internal medicine. Discharge planning for today. Dictated By: OMAR LOMELI MD AV/VELVET Conf#: [id number] DID#: [id number] CC: MARY GIBBS MD;*End*
[2016-10-17] MEDS: TAMSULOSIN (SR) 0.4 MG CAP PO SCH (09:35)
[2016-10-17] MEDS: HEPARIN 5,000 UNIT/0.5 ML VIAL SC SCH (09:35)
[2016-10-17] MEDS: ALLOPURINOL 100 MG TAB PO SCH (09:35)
[2016-10-17] MEDS: ASPIRIN 81 MG TAB PO SCH (09:35)
[2016-10-17] MEDS: ISOSORBIDE MONONITRATE(SR)30 MG TAB PO SCH (09:37)
--- NOTE | 2016-10-17 14:21 | PDOCDIS ---
Discharge Instructions DIAGNOSIS Discharge Diagnosis: Aortic stenosis. Chronic kidney disease CONDITION Patient Condition: Stable HOME CARE INSTRUCTIONS: Special Diet: CARDIAC, Carbohydrate Controlled FOLLOW UP/APPOINTMENTS Appointments Heber Meeks MD Specialty: Cardiology Office Address: [id number] [place] [id number] Office OTHER ORDERS: Other Orders: 1. Take a low-cholesterol, carbohydrate controlled diet. 2. Take medications as per prescription. 3. Follow-up with your primary care physician 2 weeks. 4. Follow-up with cardiology (Dr. eMeks) in 2 weeks. 5. Resume activities as tolerated. TOYIN STANTON NP Oct 17, 2016 14:21
[2016-10-17] MEDS ORDERED: CARV3.1260 PO (14:23)
[2016-10-17] MEDS ORDERED: ALBU8.5H3 INH (14:23)
--- NOTE | 2016-10-17 17:32 | DS ---
DATE OF ADMISSION: 10/15/2016 DATE OF DISCHARGE: 10/17/2016 FINAL DIAGNOSES: 1. Acute respiratory failure. Hypoxic. Secondary to diastolic heart failure and chronic obstructive pulmonary disease. Largely resolved. 2. Coronary artery disease, status post coronary artery bypass graft. 3. Moderate aortic valve stenosis. 4. Chest pain. Acute coronary syndrome ruled out. 5. Type 2 diabetes mellitus. Hemoglobin A1c 8.6. 6. Chronic kidney disease. 7. Dyslipidemia. 8. Normocytic normochromic anemia. 9. Benign prostatic hypertrophy. CONSULTATIONS: Dr. Heber Meeks, Cardiology. HOSPITAL COURSE: This is an 86-year-old male with multiple comorbidities who came to the emergency room with chief complaint of dyspnea. The patient also verbalized intermittent chest pain for a 1-week period. The patient denied any nausea, vomiting, fevers, chills, abdominal pain or urinary symptoms. The patient was noticed to have a creatinine of 1.65 in the emergency room. The patient's BNP was 1800. 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 Provided the patient's history of present illness and his comorbidities, a clinical decision was made to admit the patient to inpatient setting to have him further evaluated. The patient was admitted to inpatient telemetry floor. Cardiology consult was called on this patient. Serial troponins were ordered. A 2D echocardiogram was ordered. The patient's 2D echocardiogram showed preserved left ventricular ejection fraction with diastolic dysfunction. A 2D echocardiogram showed moderate aortic stenosis. The patient underwent a nuclear medicine cardiac stress test that was negative for any reversible perfusion defects. The patient's cardiac medications were optimized by Cardiology. The patient's dyspnea could be multifactorial including possibility of underlying COPD. The patient was started on inhaled bronchodilators and supplemental oxygen along with inhaled bronchodilators with improvement in the patient's symptoms. The patient was noticed to have chronic kidney disease. The patient's ARBs were discontinued with improvement in the patient's BUN and creatinine throughout the patient's hospital course. The patient was noticed to have normocytic normochromic anemia. The patient's H&H remained stable and the patient did not require any blood transfusion. The patient's iron panel showed no evidence of any iron deficiency. The patient has underlying type 2 diabetes mellitus. The patient was noticed to have a hemoglobin A1c of 8.6. The patient was maintained on sliding scale insulin with well controlled blood sugars. The patient has underlying dyslipidemia. The patient was maintained on statins. 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 The patient had no stridor or any other indications that required further inpatient evaluation. The patient may follow up with a sport internship as outpatient regarding this. The patient had a stable hospital course. The patient was cleared by consultants to be discharged home. The patient denied any complaints at the time of discharge. DISCHARGE DISPOSITION/PLAN: The patient will be discharged home today. The patient was instructed to take a carbohydrate controlled, low cholesterol diet. The patient was instructed to take medications as per prescription. He was instructed to follow up with his primary care physician in 2 weeks. He will follow up with Cardiology in 2 weeks. He was instructed to resume activities as tolerated. The patient verbalized understanding of his discharge instructions. Home health was arranged as per recommendations of the family for home physical therapy evaluation. CONDITION AT DISCHARGE: Stable. DISCHARGE MEDICATIONS: 1. ProAir HFA 8.5 grams inhaled 2 puffs q.4 hours p.r.n. wheezing. 2. Coreg 3.125 mg p.o. b.i.d. 3. Allopurinol 100 mg p.o. daily. 4. Aspirin 81 mg p.o. daily. 5. Atorvastatin 40 mg p.o. at bedtime. 6. Dexilant 60 mg p.o. daily. 7. Isosorbide dinitrate 40 mg p.o. daily. 8. Reglan 5 mg p.o. before meals. 9. NPH insulin 10 units subcutaneously q.a.m. 10. Tamsulosin 0.4 mg p.o. daily. PERTINENT LABORATORY AND DIAGNOSTIC DATA: 1. 2D echocardiogram. Ejection fraction of 55%. Normal diastolic dysfunction. Moderate aortic stenosis. Aortic valve maximal velocity 2.81 meters per second. Aortic valve gradient 1.10 cm2. Estimated peak PA systolic pressure of 28 mmHg. There is mild tricuspid regurgitation. 2. Cardiac stress test. No evidence of stress-induced ischemia. No wall motion abnormalities. Left ventricular ejection fraction at stress is 56%. 3. Latest CBC: WBC 7.5, hemoglobin 10.3, hematocrit 31.4, platelet count 163. 4. Latest BMP: Sodium 130, potassium 4.9, chloride 104, carbon dioxide 26, anion gap 10, BUN 42, creatinine 1.45, glucose 86, calcium 9.4. 5. Hemoglobin A1c 8.6. 6. Fasting lipid panel: Triglycerides 43, total cholesterol 131, LDL 68, HDL 54. 7. Iron panel: Iron 98, TIBC 255, iron saturation 37, ferritin 143. 8. CXR. Appearance of narrowing of the transverse tracheal lumen in the thoracic inlet region of uncertain etiology. At this time, I would like to thank Dr. Meeks for seeing the patient and providing clinical recommendations. The case and management of this patient was fully discussed with Dr. Treviño. Approximately 40 minutes was spent on coordinating the discharge on this patient. TOYIN TERVIÑO MD, AM/VELVET Conf#: [id number] DID#: [id number] MTDD
== END 2016-10-17 19:20 | disposition home health service (06) | DRG 291 ==
LOC: E/R 00:41 → TEL 04:45 → E/R 05:33
PROVIDERS: ADMIT Internal Medicine; ATTEND Internal Medicine
DX: I11.0 Hypertensive heart disease with heart failure (principal); J96.01 Acute respiratory failure with hypoxia; J44.9 Chronic obstructive pulmonary disease, unspecified; I35.0 Nonrheumatic aortic (valve) stenosis; E11.9 Type 2 diabetes mellitus without complications; D64.9 Anemia, unspecified; I50.33 Acute on chronic diastolic (congestive) heart failure; Z95.1 Presence of aortocoronary bypass graft; R07.9 Chest pain, unspecified; N40.0 Benign prostatic hyperplasia without lower urinary tract symptoms
CPT/HCPCS: 36415; 71010; 78452; 80053; 80061; 82550; 82553; 82728; 82962; 83036; 83540; 83735; 83880; 84100; 84443; 84484; 85025; 85610; 85730; 93005; 93017; 93306; 94640; 94664; A9500; A9505; J1644; J1815; J2785; J7042